=== PATIENT | male | born 1945 | race Caucasian/White ===

== ENCOUNTER 2016-12-25 09:26 | Observation (INO) ==
[2016-12-25] MEDS ORDERED: ALBUTEROL/IPRATROPIUM 3 ML NEB RESP TX STA (09:52)
[2016-12-25 10:06] LABS: Basophils # 0.1 10*3/uL (0.0-0.2); Basophils % 0.9 % (0.0-0.8); Eosinophils # 0.2 10*3/uL (0.0-0.87); Eosinophils % 2.8 % (0.00-10.9); Hematocrit 47.9 VOL% (42.0-52.0); Hemoglobin 15.8 GM/DL (14.0-18.0); Immature Granulocytes % 0.7 %; Immature Granulocytes Absolute 0.06 #; Lymphocytes # 1.3 10*3/uL (1.4-4.0); Lymphocytes % 15.6 % (21.2-54.2); Mean Corpuscular Hemoglobin 28 PG (27-34); Mean Corpuscular Volume 83.3 FL (87-102); Mean Platelet Volume 10.5 FL (9.6-12.0); Monocytes # 0.7 10*3/uL (0.11-0.8); Neutrophils # 5.8 10*3/uL (1.4-7.4); Platelet Count 185 T/CUMM (130-400); Red Blood Count 5.75 MC/CUMM (3.8-5.5); Red Cell Distribution Width 15.9 % (9.3-17.3); White Blood Count 8.2 T/CUMM (4-12)
[2016-12-25] MEDS ORDERED: FUROSEMIDE 40 MG/4 ML VIAL IV STA (10:26)
[2016-12-25 10:36] LABS: Albumin 4.1 G/DL (3.4-5.0); Bilirubin,Total 1.1 MG/DL (0.2-1.0); CKMB % 2.7 %; Calcium 9.2 MG/DL (8.5-10.1); Osmolality,Calculated 283.4 MOS/KG (273-304); Potassium 4.3 MMOL/L (3.5-5.1); Troponin I Only 0.02 NG/ML (0.00-0.045)
[2016-12-25] MEDS ORDERED: FUROSEMIDE 100 MG/10 ML VIAL ONE (10:37)
[2016-12-25] MEDS ORDERED: GLUCAGON 1 MG VIAL IM PRN (11:03)
[2016-12-25] MEDS ORDERED: MORPHINE 2 MG/1 ML SYRINGE IV PRN (11:03)
[2016-12-25] MEDS ORDERED: ONDANSETRON 4 MG/2 ML VIAL IV PRN (11:03)
[2016-12-25] MEDS ORDERED: POTASSIUM CHLORIDE RIDER 10 MEQ in PREMIX 1 EACH IV PRN (11:03)
[2016-12-25] MEDS ORDERED: DEXTROSE 50% 25 GM/50 ML VIAL IV PRN (11:03)
[2016-12-25] MEDS ORDERED: MAGNESIUM SULF RIDER 4 GM in PREMIX 1 EACH IV PRN (11:03)
[2016-12-25] MEDS ORDERED: ACETAMINOPHEN 325 MG TABLET PO PRN (11:03)
[2016-12-25] MEDS ORDERED: MAGNESIUM SULF RIDER 2 GM in PREMIX 1 EACH IV PRN (11:03)
[2016-12-25] MEDS: FUROSEMIDE 40 MG/4 ML VIAL IV SCH ×2 (13:31→23:40)
[2016-12-25] MEDS ORDERED: DOCUSATE SODIUM 100 MG CAPSULE PO PRN (13:40)
[2016-12-25] MEDS ORDERED: LACTULOSE 20 GM/30 ML UDCUP PO PRN (13:40)
[2016-12-25] MEDS ORDERED: diphenhydrAMINE CAP 25 MG CAPSULE PO PRN (13:40)
[2016-12-25 13:57] LABS: CKMB % 2.6 %; Troponin I Only < 0.015 NG/ML (0.00-0.045)
[2016-12-25 15:45] LABS: INR 4.3
[2016-12-25 15:47] LABS: PT Patient Result 43.1 SECS
[2016-12-25 15:55] LABS: CKMB % 2.5 %; Troponin I Only < 0.015 NG/ML (0.00-0.045)
[2016-12-25] MEDS: INSULIN LISPRO 100 UNIT/ML SUBCUT SCH ×2 (16:36→21:21)
[2016-12-25] MEDS ORDERED: INSULIN LISPRO 100 UNIT/ML SUBCUT PRN (17:00)
[2016-12-25] MEDS ORDERED: WARFARIN 7.5 MG TABLET PO SCH (18:00)
[2016-12-25 19:07] LABS: CKMB % 2.5 %; Troponin I Only < 0.015 NG/ML (0.00-0.045)
[2016-12-25] MEDS ORDERED: ZALEPLON 5 MG CAPSULE PO PRN (20:00)
[2016-12-25] MEDS ORDERED: MAGNESIUM OXIDE 400 MG TABLET PO SCH (21:00)
[2016-12-25] MEDS: CARVEDILOL 25 MG TABLET PO SCH (21:21)
[2016-12-25] MEDS: CHOLECALCIFEROL 1,000 UNIT TABLET PO SCH (21:21)
[2016-12-26 03:12] LABS: White Blood Count 9.2 T/CUMM (4-12)
[2016-12-26 03:13] LABS: Basophils # 0.1 10*3/uL (0.0-0.2); Basophils % 0.7 % (0.0-0.8); Eosinophils # 0.2 10*3/uL (0.0-0.87); Eosinophils % 2.4 % (0.00-10.9); Hematocrit 44.6 VOL% (42.0-52.0); Hemoglobin 15.2 GM/DL (14.0-18.0); Immature Granulocytes % 0.7 %; Immature Granulocytes Absolute 0.06 #; Lymphocytes # 1.3 10*3/uL (1.4-4.0); Lymphocytes % 14.4 % (21.2-54.2); Mean Corpuscular HGB Conc 34.1 GM/DL (32-36); Mean Corpuscular Hemoglobin 28 PG (27-34); Monocytes # 0.7 10*3/uL (0.11-0.8); Monocytes % 7.3 % (1.7-12.7); Neutrophils # 6.8 10*3/uL (1.4-7.4); Neutrophils % 74.5 % (38.7-73.9); Platelet Count 167 T/CUMM (130-400); Red Blood Count 5.44 MC/CUMM (3.8-5.5); Red Cell Distribution Width 15.6 % (9.3-17.3)
[2016-12-26 03:31] LABS: INR 4.1
[2016-12-26 03:46] LABS: Calcium 8.6 MG/DL (8.5-10.1); Magnesium 1.7 MG/DL (1.8-2.4); Osmolality,Calculated 284.5 MOS/KG (273-304); Potassium 3.6 MMOL/L (3.5-5.1)
[2016-12-26 03:49] LABS: Risk Ratio 4.31
[2016-12-26 03:55] LABS: Thyroid Stimulating Hormone 2.23 uIU/ml (0.358-3.74)
[2016-12-26 07:42] VITALS: BP 124/62
[2016-12-26] MEDS: INSULIN LISPRO 100 UNIT/ML SUBCUT SCH (08:24)
[2016-12-26] MEDS: FUROSEMIDE 40 MG/4 ML VIAL IV SCH ×2 (08:50→08:57)
[2016-12-26] MEDS: CARVEDILOL 25 MG TABLET PO SCH (08:50)
[2016-12-26] MEDS: CHOLECALCIFEROL 1,000 UNIT TABLET PO SCH (08:50)
[2016-12-26] MEDS ORDERED: LISINOPRIL 2.5 MG TABLET PO SCH (09:00)
[2016-12-26] MEDS ORDERED: PANTOPRAZOLE 40 MG TABLET PO SCH (09:00)
[2016-12-26] MEDS ORDERED: SERTRALINE 100 MG TABLET PO SCH (09:00)
[2016-12-26] MEDS ORDERED: SIMVASTATIN 20 MG TABLET PO SCH (09:00)
[2016-12-26] MEDS ORDERED: INSULIN GLARGINE 100 UNIT/ML SUBCUT SCH (09:00)
[2016-12-26] MEDS ORDERED: LEVOTHYROXINE 150 MCG TABLET PO SCH (09:00)
[2016-12-26] MEDS ORDERED: WARFARIN 5 MG TABLET PO SCH (18:00)
[2016-12-30] MEDS ORDERED: CYANOCOBALAMIN 1000 MCG/1 ML VIAL SUBCUT SCH (09:00)
[2017-01-08] MEDS ORDERED: TESTOSTERONE CYPIONATE 200 MG/ML VIAL IM SCH (09:00)
== END 2016-12-26 12:24 | disposition home or self-care (01) ==
LOC: N.ED 09:26 → N.EDINP 09:26 → N.TELEN 12:35
PROVIDERS: ADMIT Internal Medicine Cardiovascular Disease; ATTEND Internal Medicine Cardiovascular Disease